=== PATIENT | female | born 1950 | race Hispanic/Latino ===

== ENCOUNTER 2017-05-06 15:19 | Emergency (ER) | payer MEDICARE, OTHER ==
[2017-05-06 15:25] VITALS: BP 118/78; PULSE 83; RESP 16; TEMP 98.2; O2SAT 99
--- NOTE | 2017-05-06 16:11 | C.PDOC ---
History Of Present Illness 66 yr old female presents to the ER she missed a step and fell 6 days ago, falling on her left knee. Patient states she has been taking OTC medicine with mild relief. Patient states she initially had some swelling for the first few days but was treating with ice and swelling went down. Patient is here requesting XRay stating she still has pain with walking. Denies LOC, back pain, weakness or numbness. Time Seen by Provider: 05/06/17 15:39 Chief Complaint (Nursing): Lower Extremity Problem/Injury History Per: Patient History/Exam Limitations: no limitations Onset/Duration Of Symptoms: Days (6) Current Symptoms Are (Timing): Still Present Past Medical History Reviewed: Historical Data, Nursing Documentation, Vital Signs Vital Signs: Last Vital Signs Temp 98.2 F 05/06/17 15:23 Pulse 83 05/06/17 15:23 Resp 16 05/06/17 15:23 BP 118/78 05/06/17 15:23 Pulse Ox 99 05/06/17 17:16 - Medical History PMH: Asthma Surgical History: Coronary Stent (2006) Family History: States: No Known Family Hx - Social History Hx Alcohol Use: No Hx Substance Use: No - Immunization History Hx Tetanus Toxoid Vaccination: No Hx Influenza Vaccination: No Hx Pneumococcal Vaccination: No Review Of Systems Except As Marked, All Systems Reviewed And Found Negative. Musculoskeletal: Positive for: Other ((+) Left knee pain ). Negative for: Back Pain Neurological: Negative for: Weakness, Numbness Physical Exam - Physical Exam Appears: Well, Non-toxic, No Acute Distress Skin: Warm, Dry Head: Atraumatic, Normacephalic Eye(s): bilateral: Normal Inspection Neck: Normal ROM Chest: Symmetrical, No Tenderness Extremity: No Calf Tenderness, Capillary Refill (<2), No Swelling, Other (Left Knee: tenderness to the anterior and suprapatellar. Pain with flexion of the knee. Mild old ecchymosis. ) Pulses: Left Dorsalis Pedis: Normal, Right Dorsalis Pedis: Normal Neurological/Psych: Oriented x3, Normal Speech, Normal Motor, Normal Sensation ED Course And Treatment O2 Sat by Pulse Oximetry: 99 Pulse Ox Interpretation: Normal - Other Rad X-Ray - Left Knee X-Ray: Viewed By Me, Read By Radiologist Interpretation: PROCEDURE: Left Knee Radiographs. HISTORY: Trauma several days ago presenting with pain pre and infrapatellar regions. COMPARISON: None. FINDINGS: BONES: Normal. No fracture. JOINTS: Normal. No osteoarthritis. JOINT EFFUSION: None. OTHER FINDINGS: None. IMPRESSION: No significant or acute findings to account for/ related to the clinical presentation. Medical Decision Making Medical Decision Making: PLAN: * X-Ray - Left Knee Xray reviewed showing no acute fracture, dislocation or effusion. Knee brace applied by CP Explain results to patient and recommend analgesics as needed Disposition - Disposition Referrals: Reynaldo Myers III, MD [Staff Provider] - Disposition: HOME/ ROUTINE Disposition Time: 16:20 Condition: STABLE Additional Instructions: Your xray is normal, no fracture. Take Motrin or other anti-inflammatory medication, with food to not upset stomach. Follow up with orthopedic if pain persists over 2 weeks. Instructions: Knee Sprain (ED) - POA Present On Arrival: None - Clinical Impression Clinical Impression: Knee contusion, Knee sprain - PA / [employer]ATT[employer] DES[employer] / Resident Statement MD/DO has reviewed & agrees with the documentation as recorded. - Scribe Statement The provider has reviewed the documentation as recorded by the Scribe Aimee Stephenson All medical record entries made by the Scribe were at my direction and personally dictated by me. I have reviewed the chart and agree that the record accurately reflects my personal performance of the history, physical exam, medical decision making, and the department course for this patient. I have also personally directed, reviewed, and agree with the discharge instructions and disposition.
--- NOTE | 2017-05-06 16:57 | RAD ---
PROCEDURE: Left Knee Radiographs. HISTORY: Trauma several days ago presenting with pain pre and infrapatellar regions COMPARISON: None. FINDINGS: BONES: Normal. No fracture. JOINTS: Normal. No osteoarthritis. JOINT EFFUSION: None. OTHER FINDINGS: None. IMPRESSION: No significant or acute findings to account for/ related to the clinical presentation.
== END 2017-05-06 16:22 | disposition home or self-care (01) ==
LOC: C.ER 15:19
DX: S80.02XA Contusion of left knee, initial encounter (principal); S83.92XA Sprain of unspecified site of left knee, initial encounter; W10.9XXA Fall (on) (from) unspecified stairs and steps, initial encounter